=== PATIENT | male | born 1960 | race American Indian/Alaskan Native ===

== ENCOUNTER 2017-01-30 05:46 | Day surgery (SDC) | payer MEDICARE ==
[2017-01-30] MEDS ORDERED: NACL 0.9% 1000 ML 1,000 ML IV SCH (06:00)
[2017-01-30] MEDS ORDERED: ANCEF/STERILE WATER 2 GM/20 ML 2 GM/20 ML SYRINGE IV NR (06:00)
[2017-01-30 09:01] LABS: Basophils % (Auto) 1.2 % (0.0-1.8); Eosinophils % (Auto) 4.2 % (0.0-4.3); Hematocrit 33.9 % (35.5-45.6); Hemoglobin 11.2 gm/dl (11.8-15.2); Mean Corpuscular HGB Conc 33 % (32-34); Mean Corpuscular Hemoglobin 33 pg (28-32); Mean Corpuscular Volume 99 fl (84-94); Platelet Count 297 K/mm3 (140-440); Red Blood Count 3.43 M/mm3 (3.65-5.03); White Blood Count 8.8 K/mm3 (4.5-11.0)
[2017-01-30 09:11] LABS: INR 0.99 (0.87-1.13)
--- NOTE | 2017-01-30 09:15 | Anesthesia Consultation ---
Anesthesia Consult and Med Hx Date of service: 01/30/17 - Airway Anesthetic Teeth Evaluation: Good ROM Head & Neck: Adequate Mental/Hyoid Distance: Adequate Mallampati Class: Class II Intubation Access Assessment: Good - Pulmonary Exam CTA: Yes - Cardiac Exam Cardiac Exam: RRR - Pre-Operative Health Status ASA Pre-Surgery Classification: ASA3 - Central Nervous System Hx Seizures: Yes ("mild seizure" 2015 never knew why and never had another) Hx Psychiatric Problems: No - Endocrine Hx End Stage Renal Disease: Yes - Other Systems Hx Cancer: No
--- NOTE | 2017-01-30 09:16 | Anesthesia Day of Surgery ---
Anesthesia Day of Surgery - Day of Surgery Patient Examined: Yes Patient H&P Reviewed: Yes Patient is NPO: Yes
[2017-01-30 09:26] LABS: Calcium 8.4 mg/dL (8.4-10.2)
[2017-01-30] MEDS ORDERED: DILAUDID IV PRN (09:30)
[2017-01-30 09:37] LABS: Potassium 6.5 mmol/L (3.6-5.0)
[2017-01-30] MEDS ORDERED: PERCOCET 5/325 PO PRN (10:00)
[2017-01-30] MEDS ORDERED: ZOFRAN IV PRN (10:30)
[2017-01-30] MEDS ORDERED: VERSED IV ONE (10:30)
[2017-01-30 10:35] LABS: Calcium 7.8 mg/dL (8.4-10.2); Chloride 100.4 mmol/L (98-107)
[2017-01-30 11:33] LABS: Potassium 4.7 mmol/L (3.6-5.0)
[2017-01-30] MEDS ORDERED: MARCAINE 0.5% 30 ML INFILTRATI ONE (11:58)
[2017-01-30] MEDS ORDERED: XYLOCAINE 1% 20 mL ONE (11:58)
[2017-01-30] MEDS ORDERED: PROTAMINE SULFATE ONE (11:58)
[2017-01-30] MEDS ORDERED: HEPARIN 10,000 UNITS/10 ML ONE (11:58)
[2017-01-30] MEDS ORDERED: SODIUM BICARBONATE ONE (11:58)
[2017-01-30] MEDS ORDERED: NACL 0.9% 500 ML 500 ML ONE (11:58)
[2017-01-30] MEDS ORDERED: SUBLIMAZE ONE (12:07)
[2017-01-30] MEDS ORDERED: DIPRIVAN 10 MG/ML IV ONE (12:07)
[2017-01-30] MEDS ORDERED: NACL 0.9% IR ONE (12:10)
[2017-01-30] MEDS ORDERED: HEPARIN 10,000 UNITS/10 ML 2,000 UNIT in NACL 0.9% 500 ML 500 ML IR ONE (12:10)
[2017-01-30] MEDS ORDERED: MARCAINE 0.5% INFILTRATI ONE (12:10)
[2017-01-30] MEDS ORDERED: BREVIBLOC IV ONE (12:29)
[2017-01-30] MEDS ORDERED: XYLOCAINE MPF 2% ONE (12:47)
[2017-01-30] MEDS ORDERED: ZOFRAN ONE (12:47)
--- NOTE | 2017-01-30 13:25 | Short Stay Summary ---
Short Stay Documentation Date of service: 01/30/17 Narrative H&P: See H&P - History H&P: obtained from office - Allergies and Medications Current Medications: Allergies hydromorphone [From Dilaudid] Allergy (Verified 01/25/17 14:24) passed out Home Medications Medication Instructions Recorded Confirmed Last Taken Type No Known Home Medications [No 01/25/17 01/25/17 Unknown History Reported Home Medications] Active Medications Cefazolin Sodium (Ancef/Sterile Water 2 Gm/20 Ml) 2 gm in 20 mls @ 80 mls/hr IV PREOP NR PRN Reason: Protocol Stop: 01/30/17 23:59 Sodium Chloride (Nacl 0.9% 1000 Ml) 1,000 mls @ 42 mls/hr IV DIRECT [place] Last Admin: 01/30/17 09:09 Dose: 42 mls/hr - Brief post op/procedure progress note Date of procedure: 01/30/17 Pre-op diagnosis: End-Stage Renal Disease Post-op diagnosis: same Procedure: Revision of Left Brachiobasilic Arteriovenous Fistula Anesthesia: SILVESTRE Surgeon: LAVINIA CARY Hospice Aide: MARISELA IBARRA Estimated blood loss: minimal Pathology: none Condition: stable - Disposition Condition at discharge: Good Disposition: DC-01 TO HOME OR SELFCARE Short Stay Discharge Plan Activity: other (no heavy lifting with left arm) Wound: open to air, keep clean and dry, other (okay to wash the wound with soap and water but do not soak in water) Follow up with: LAVINIA CARY MD [Staff Physician] - 14 Days Prescriptions: HYDROcodone/APAP 7.5-325 [[place] 7.5/325] 1 each PO Q6HR PRN #40 tablet PRN Reason: Pain
--- NOTE | 2017-01-30 13:27 | Operative Report ---
Operative Report Operative Report: Date of procedure: 01/30/2017 Pre-operative diagnosis: End-stage Renal Disease Post-operative diagnosis: End-stage Renal Disease Procedure(s): Creation of Left Brachial Artery to Basilic Arteriovenous Fistula Surgeon: Marco Antonio Schroeder MD Metallurgical Lab Technician: Jahaira Mckeon D.O. Anesthesia: Gen. endotracheal anesthesia EBL: Minimal Counts: Correct Complications: None Condition: Stable Findings: Forearm basilic vein to small for creation of AV fistula. Specimen: None Indication: The patient is a 56-year-old male in need of long-term access for hemodialysis. He had adequate vein for creation of an AV fistula. He was given the risks, benefits, and alternative procedures and consented to the procedure. Description of Procedure: The patient was brought to the operating room and laid in supine position after general endotracheal anesthesia was administered the patient was prepped and draped in normal sterile fashion. After anesthetizing the skin a transverse incision was created just below the antecubital crease. Dissection was carried down to the the basilic vein using sharp dissection. The vein was dissected out both proximally and distally and suture ligated and divided distally. I then ran a 3 Debbi proximally in the vein, to ensure patency of the vein. I then flushed the vein with heparinized saline and controlled flow with a bulldog clamp. I then dissected out the brachial artery through this incision circumferentially both proximal and distal and controlled th artery with vessel loops. I placed the vessel loops on tension, controlling the flow through the artery, and created an arteriotomy using an 11 blade and Valerio scissors. I created an end to side anastomosis between the basilic vein and brachial artery using a 6-0 Prolene in running fashion. Prior to completing the anastomosis I flushed the artery both proximally and distally and then advanced a 3 Debbi proximally to break the spasm in the artery. I completed the anastomosis and removed all vessel loops allowing flow into the fistula which had an excellent thrill. I achieved hemostasis with a combination of direct pressure and electrocautery. Once hemostasis was achieved I anesthetized the wound with Marcaine. I closed the wound in 2 layers using 3-0 Vicryl in a running fashion to close the deep dermal layer and 4-0 Monocryl in a running fashion in the subcuticular layer. I dressed the wound with Surgicel. The patient tolerated the procedure well, all sponge needle and instrument counts were correct. The patient was taken to recovery in stable condition.
[2017-01-30] MEDS ORDERED: LOPRESSOR IV ONE (13:37)
[2017-01-30] MEDS ORDERED: ZOFRAN IV NR (14:00)
[2017-01-30] MEDS ORDERED: NORCO 7.5/325 PO PRN (14:00)
[2017-01-30] MEDS ORDERED: APRESOLINE IV ONE (14:30)
[2017-01-30] MEDS ORDERED: REGLAN IV ONE (15:00)
[2017-01-30] MEDS ORDERED: REGLAN ONE (15:02)
[2017-01-30 15:07] VITALS: BP 185/86
== END 2017-01-30 15:50 | disposition home or self-care (01) ==
LOC: OR 05:46
PROVIDERS: ATTEND Surgery Vascular Surgery
DX: I12.0 Hypertensive chronic kidney disease with stage 5 chronic kidney disease or end stage renal disease (principal); N18.6 End stage renal disease; I70.213 Atherosclerosis of native arteries of extremities with intermittent claudication, bilateral legs; G40.909 Epilepsy, unspecified, not intractable, without status epilepticus; Z88.8 Allergy status to other drugs, medicaments and biological substances
CPT/HCPCS: 36415; 36821; 80048; 85025; 85610; C1757; J0360; J0690; J1644; J2250; J2405; J2704; J2765; J3010; J7030; J7040; J2720

== ENCOUNTER 2017-06-12 06:00 | Day surgery (SDC) | payer MEDICAID, MEDICARE ==
[~2017-06-12 06:00] MED LIST: ANCEF/STERILE WATER 2 GM/20 ML 2 GM/20 ML SYRINGE IV NR; HEPARIN 10,000 UNITS/10 ML IV ONE; MARCAINE 0.5% INFILTRATI ONE; NACL 0.9% 1000 ML 1,000 ML IV SCH; NACL 0.9% 500 ML IRRIGATION ONE
[2017-06-12] MEDS ORDERED: NACL BACTERIOSTATIC INFILTRATI ONE (06:33)
[2017-06-12 07:01] LABS: Basophils % (Auto) 0.8 % (0.0-1.8); Eosinophils # (Auto) 0.2 K/mm3 (0.0-0.4); Eosinophils % (Auto) 3.5 % (0.0-4.3); Hematocrit 36.8 % (35.5-45.6); Hemoglobin 11.7 gm/dl (11.8-15.2); Lymphocytes # (Auto) 1.1 K/mm3 (1.2-5.4); Lymphocytes % (Auto) 18.2 % (13.4-35.0); Mean Corpuscular HGB Conc 32 % (32-34); Mean Corpuscular Hemoglobin 31 pg (28-32); Mean Corpuscular Volume 97 fl (84-94); Monocytes # (Auto) 0.7 K/mm3 (0.0-0.8); Monocytes % (Auto) 10.5 % (0.0-7.3); Platelet Count 275 K/mm3 (140-440); Red Blood Count 3.79 M/mm3 (3.65-5.03); Red Cell Distribution Width 19.3 % (13.2-15.2)
[2017-06-12] MEDS ORDERED: HEPARIN 10,000 UNITS/10 ML ONE (07:10)
[2017-06-12] MEDS ORDERED: MARCAINE 0.5% 30 ML INFILTRATI ONE (07:10)
[2017-06-12] MEDS ORDERED: NACL 0.9% 500 ML 500 ML ONE (07:10)
[2017-06-12 07:13] LABS: Calcium 8.4 mg/dL (8.4-10.2)
--- NOTE | 2017-06-12 07:28 | Anesthesia Consultation ---
Anesthesia Consult and Med Hx Date of service: 06/12/17 - Airway Anesthetic Teeth Evaluation: Good ROM Head & Neck: Adequate Mental/Hyoid Distance: Adequate Mallampati Class: Class II Intubation Access Assessment: Good - Pulmonary Exam CTA: Yes - Cardiac Exam Cardiac Exam: No Murmur - Pre-Operative Health Status ASA Pre-Surgery Classification: ASA2, ASA3 - Central Nervous System Hx Seizures: Yes ("mild seizure" 2015 never knew why and never had another) Hx Psychiatric Problems: No - Endocrine Hx End Stage Renal Disease: Yes - Other Systems Hx Cancer: No
--- NOTE | 2017-06-12 07:28 | Anesthesia Day of Surgery ---
Anesthesia Day of Surgery - Day of Surgery Patient Examined: Yes Patient H&P Reviewed: Yes Patient is NPO: Yes
[2017-06-12] MEDS ORDERED: DIPRIVAN 10 MG/ML IV ONE (07:31)
[2017-06-12] MEDS ORDERED: LACTATED RINGERS 1,000 ML IV SCH (08:00)
[2017-06-12] MEDS ORDERED: VERSED IV NR (08:00)
[2017-06-12] MEDS ORDERED: PEPCID PO NR (08:00)
[2017-06-12] MEDS ORDERED: XYLOCAINE MPF 2% ONE (09:00)
[2017-06-12] MEDS ORDERED: HEPARIN 10,000 UNITS/10 ML IV ONE (09:11)
[2017-06-12] MEDS ORDERED: NACL 0.9% 500 ML IRRIGATION ONE (09:12)
[2017-06-12] MEDS ORDERED: SUBLIMAZE ONE (09:29)
[2017-06-12] MEDS ORDERED: MARCAINE 0.5% INFILTRATI ONE (11:20)
[2017-06-12] MEDS ORDERED: ZOFRAN ONE ×2 (11:22→11:51)
--- NOTE | 2017-06-12 11:48 | Short Stay Summary ---
Short Stay Documentation Date of service: 06/12/17 Narrative H&P: See H&P - History H&P: obtained from office - Allergies and Medications Current Medications: Allergies hydromorphone [From Dilaudid] Allergy (Verified 06/11/17 09:04) passed out Home Medications Medication Instructions Recorded Confirmed Last Taken Type No Known Home Medications [No 06/11/17 06/11/17 Unknown History Reported Home Medications] Active Medications Famotidine (Pepcid) 20 mg PO PREOP NR Stop: 06/12/17 23:59 Last Admin: 06/12/17 07:39 Dose: 20 mg Cefazolin Sodium (Ancef/Sterile Water 2 Gm/20 Ml) 2 gm in 20 mls @ 80 mls/hr IV PREOP NR; Protocol Stop: 06/12/17 23:00 Sodium Chloride (Nacl 0.9% 1000 Ml) 1,000 mls @ 42 mls/hr IV DIRECT [place] Last Admin: 06/12/17 07:34 Dose: 42 mls/hr Lactated Ringer's (Lactated Ringers) 1,000 mls @ 100 mls/hr IV DIRECT [place] Midazolam HCl (Versed) 2 mg IV PREOP NR Stop: 06/12/17 23:59 Last Admin: 06/12/17 07:40 Dose: 2 mg - Brief post op/procedure progress note Date of procedure: 06/12/17 Pre-op diagnosis: Complications No Dialysis Access Post-op diagnosis: same Procedure: Revision with elevation of left arm AV Fistula Anesthesia: GETA Findings: Left arm hematoma secondary to accessing the fistula prior to elevation Surgeon: LAVINIA CARY Estimated blood loss: other (200 ml) Pathology: none Condition: stable - Disposition Condition at discharge: Good Disposition: DC-01 TO HOME OR SELFCARE Short Stay Discharge Plan Activity: other (No heavy lifting with left arm) Wound: open to air, keep clean and dry, other ([place] to wash the wound with soap and water but do not soak in water) Follow up with: LAVINIA CARY MD [Staff Physician] - 14 Days Prescriptions: HYDROcodone/APAP 7.5-325 [[place] 7.5/325] 1 each PO Q6HR PRN #60 tablet PRN Reason: Pain
[2017-06-12] MEDS ORDERED: ZOFRAN IV ONE ×2 (11:50→12:35)
--- NOTE | 2017-06-12 11:53 | Operative Report ---
Operative Report Operative Report: Date of procedure: 06/12/2017 Pre-operative diagnosis: Complications of Dialysis Access Post-operative diagnosis: Same Procedure(s): Revision with Elevation of Left Brachiobasilic AV Fistula Surgeon: Marco Antonio Schroeder MD Feather Curling Machine Operator: None Anesthesia: General Endotracheal Anesthesia EBL: Minimal Counts: Correct Complications: None Condition: Stable Findings: Successful elevation of left brachiobasilic fistula with excellent thrill. 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 He was given the risk, benefits, and alternative procedures and consented to proceed. Description of Procedure: The patient was brought to the operating room and laid in supine position after general endotracheal anesthesia was achieved her left arm was prepped and draped in normal sterile fashion. A longitudinal incision was then created on the medial aspect of the arm centered over the fistula extending from the axillary crease to the antecubital crease. Sharp dissection was used to continue the dissection down to the fistula. The fistula was then dissected circumferentially and all side branches were suture ligated and divided. A Mary-Wick tunneler was then used to tunnel from the distal part of the incision towards the proximal portion of the incision and a lateral and slightly curved direction. The fistula was then marked on the anterior surface , the inflow was controlled with a DeBakey, clamp and the outflow was controlled with bulldog clamps. This vessel was then divided near the arterial inflow and secured to the Mary-Wick tunneler with 2-0 silk and then pulled retrograde through the tunnel. I flushed the venous outflow with heparinized saline to assure that there was no evidence of twist or kinks. I then performed an end-to-end anastomosis between the proximal and distal ends using two 6-0 Prolenes in running fashion. Prior to completing the anastomosis I flushed the arterial inflow of the fistula to ensure there was no clot or debris. I then completed the anastomosis and removed all clamps allowing flow through the fistula which had an excellent thrill. I achieved hemostasis in the wound with a combination of direct pressure and electrocautery. I then anesthetized the wound with 0.5% Marcaine and closed the wound in 2 layers using a 3-0 Vicryl in running fashion in the deep dermal layer and a 4-0 Monocryl in running fashion in the subcuticular. I then dressed the wound with Surgicel. The patient tolerated the procedure well, all sponge needle and instrument counts were correct, the patient was taken to the recovery area in stable condition.
[2017-06-12] MEDS ORDERED: PHENERGAN PR ONE (12:45)
[2017-06-12] MEDS ORDERED: DECADRON IV NR (13:59)
[2017-06-12 14:10] VITALS: BP 134/91
[2017-06-12] MEDS ORDERED: TRANSDERM-SCOP TD ONE (14:15)
== END 2017-06-12 14:52 | disposition home or self-care (01) ==
LOC: OR 06:00
PROVIDERS: ATTEND Surgery Vascular Surgery
DX: T82.590A Other mechanical complication of surgically created arteriovenous fistula, initial encounter (principal); I70.213 Atherosclerosis of native arteries of extremities with intermittent claudication, bilateral legs; I12.0 Hypertensive chronic kidney disease with stage 5 chronic kidney disease or end stage renal disease; N18.6 End stage renal disease; Y83.2 Surgical operation with anastomosis, bypass or graft as the cause of abnormal reaction of the patient, or of later complication, without mention of misadventure at the time of the procedure; Z88.6 Allergy status to analgesic agent; Z79.899 Other long term (current) drug therapy
CPT/HCPCS: 36415; 36832; 80048; 82962; 85025; C1757; J0690; J1100; J1644; J2250; J2405; J2704; J3010; J7030; J7040